=== PATIENT | male | born 1980 | race Caucasian/White ===

== ENCOUNTER 2016-12-08 23:47 | Emergency (ER) | payer MEDICAID ==
[2016-12-09 00:13] LABS: HEMATOCRIT 43.9 % (42.0-52.0); HEMOGLOBIN 14.9 gm/dl (14.0-18.0); MEAN CELL VOLUME 92.4 fl (81-97); MEAN CORPUSCULAR HEMOGLOBIN 31.4 pg (27-33); MEAN CORPUSCULAR HGB CONC 33.9 g/dl (32-36); MEAN PLATELET VOLUME 9.6 fl (7.4-10.4); PLATELET COUNT 349 K/uL (130-400); RED BLOOD COUNT 4.75 M/uL (4.40-5.70); RED CELL DISTRIBUTION WIDTH 12.9 % (11.5-14.5)
[2016-12-09] MEDS ORDERED: 0.9 % SODIUM CHLORIDE 1,000 ML BAG IV ONE (00:29)
[2016-12-09] MEDS ORDERED: HYDROMORPHONE HCL 1 MG/ML CPJ IVP ONE (00:38)
[2016-12-09] MEDS ORDERED: ONDANSETRON HCL IV 4 MG/2 ML VIAL IVP ONE (00:38)
[2016-12-09] MEDS ORDERED: Diph,Pert(Acell),Tet Vac 0.5 ML SYR IM ONE (01:45)
[2016-12-09] MEDS ORDERED: HYDROCODONE/APAP 10/325 TABLET PO ONE (02:14)
[2016-12-09] MEDS ORDERED: CEPHALEXIN 500 MG CAPSULE PO STA (02:14)
--- NOTE | 2016-12-09 02:23 | Emergency Department Record ---
History of Present Illness - General Chief Complaint: Laceration(s) Stated Complaint: LACERATION Time Seen by Provider: 12/08/16 23:52 Source: Patient Mode of Arrival: Ambulatory Limitations: No limitations - History of Present Illness Initial Commments: pt came in bleeding profusely after putting arm through glass door when letting dog out.. pt states he has pain in arm and cant feel 5th finger Onset/Timin -: Minutes(s) Extremity Location: Right: Forearm Place: Home Context: Other Associated Symptoms: Pain, Suspect foreign body present - [place] Coma Scale Eye Response: (4) Open spontaneously Motor Response: (6) Obeys commands Verbal Response: (5) Oriented [place] Total: 15 - Related Data Patient Tetanus UTD (within 5 yrs): No Previous Rx's Medication Instructions Recorded Hydrocodone/Acetaminophen [[place] 1 each PO QID #10 tablet 12/09/16 7.5-325 Tablet] Allergies Allergy/AdvReac Type Severity Reaction Status Date / Time ibuprofen [From Motrin] AdvReac Intermediate VOMITING Verified 12/08/16 23:53 Travel Screening - Travel/Exposure Within Last 30 Days Have you traveled within the last 30 days?: No - Travel Symptoms Symptom Screening: None Review of Systems Reviewed: No additional complaints except as noted below Constitutional: Reports: As per HPI. Denies: Chills, Fever, Malaise, Night sweats, Weakness, Weight change Eyes: Reports: As per HPI. Denies: Eye discharge, Eye pain, Photophobia, Vision change ENT: Reports: As per HPI. Denies: Congestion, Dental pain, Ear pain, Epistaxis , Hearing loss, Throat pain Respiratory: Reports: As per HPI. Denies: Cough, Dyspnea, Hemoptysis, Stridor, Wheezes Cardiovascular: Reports: As per HPI. Denies: Arrhythmia, Chest pain, Dyspnea on exertion, Edema, Murmurs, Orthopnea, Palpitations, Paroxysmal nocturnal dyspnea, Rheumatic Fever, Syncope Endocrine: Reports: As per HPI. Denies: Fatigue, Heat or cold intolerance, Polydipsia, Polyuria Gastrointestinal: Reports: As per HPI. Denies: Abdominal pain, Constipation, Diarrhea, Hematemesis, Hematochezia, Melena, Nausea, Vomiting Genitourinary: Reports: As per HPI. Denies: Dysuria, Frequency, Hematuria, Incontinence, Retention, Testicular pain, Testicular mass, Urgency Musculoskeletal: Reports: As per HPI. Denies: Arthralgia, Back pain, Gout, Joint swelling, Myalgia, Neck pain Skin: Reports: As per HPI. Denies: Bruising, Change in color, Change in hair/ nails, Lesions, Pruritus, Rash Neurological: Reports: As per HPI. Denies: Abnormal gait, Confusion, Headache, Numbness, Paresthesias, Seizure, Tingling, Tremors, Vertigo, Weakness Psychiatric: Reports: As per HPI. Denies: Anxiety, Auditory hallucinations, Depression, Homicidal thoughts, Suicidal thoughts, Visual hallucinations Hematological/Lymphatic: Reports: As per HPI. Denies: Anemia, Blood Clots, Easy bleeding, Easy bruising, Swollen glands Past Medical History - SOCIAL HISTORY Smoking Status: Current every day smoker - RESPIRATORY Hx Respiratory Disorders: No - CARDIOVASCULAR Hx Cardio Disorders: Yes Hx Hypertension: Yes - NEURO Hx Neuro Disorders: No - GI Hx GI Disorders: Yes Hx Reflux: Yes - Hx Genitourinary Disorders: No - ENDOCRINE Hx Endocrine Disorders: No - MUSCULOSKELETAL Hx Musculoskeletal Disorders: No - PSYCH Hx Psych Problems: No - HEMATOLOGY/ONCOLOGY Hx Hematology/Oncology Disorders: No Family Medical History Any Significant Family History?: Yes Hx Depression: Mother Hx HTN: Mother, Grandparents Physical Exam - General General Appearance: Alert, Oriented x3, Cooperative, Moderate distress - Head Head exam: Normal inspection - Eye Eye exam: Normal appearance, PERRL, EOMI Pupils: Normal accommodation - ENT ENT exam: Normal exam, Mucous membranes moist, Normal external ear exam, Normal orophraynx Ear exam: Normal external inspection. negative: External canal tenderness Nasal Exam: Normal inspection. negative: Discharge, Sinus tenderness Mouth exam: Normal external inspection, Tongue normal Teeth exam: Normal inspection. negative: Dental caries Throat exam: Normal inspection. negative: Tonsillar erythema, Tonsillar exudate - Neck Neck exam: Normal inspection, Full ROM. negative: Tenderness - Respiratory Respiratory exam: Normal lung sounds bilaterally. negative: Respiratory distress - Cardiovascular Cardiovascular Exam: Regular rate, Normal rhythm, Normal heart sounds - GI/Abdominal GI/Abdominal exam: Soft, Normal bowel sounds. negative: Tenderness - Rectal Rectal exam: Deferred - exam: Deferred - Extremities Extremities exam: Full ROM, Normal capillary refill, Tenderness, Other (pulses present. good cap refill, decreased sensation 5th finger) Image of Full Body: 1 - 1.5 cm lac - Back Back exam: Reports: Normal inspection, Full ROM. Denies: Muscle spasm, Rash noted, Tenderness - Neurological Neurological exam: Alert, CN II-XII intact, Normal gait, Oriented X3 - Psychiatric Psychiatric exam: Normal affect, Normal mood - Skin Skin exam: Dry, Intact, Normal color, Warm Course Vital Signs 12/08/16 23:54 Temperature 98.2 F Pulse Rate 102 H Respiratory 20 Rate Blood Pressure 132/103 Pulse Ox 96 - Reevaluation(s) Reevaluation #1: 12/09/16 02:22 it took tourniquet w bp cuff twice and pressure and tle to get bleeding to stop. xray shows glass. info sent to dr todd Reevaluation #2: 12/09/16 02:24 wound cleansed and anesth w lido, probed, unable to find fb Medical Decision Making - Lab Data Result diagrams: 12/09/16 00:02 Lab Results 12/09/16 Range/Units 00:02 WBC 8.0 (4.2-12.2) K/uL RBC 4.75 (4.40-5.70) M/uL Hgb 14.9 (14.0-18.0) gm/dl Hct 43.9 (42.0-52.0) % MCV 92.4 (81-97) fl MCH 31.4 (27-33) pg MCHC 33.9 (32-36) g/dl RDW 12.9 (11.5-14.5) % Plt Count 349 (130-400) K/uL MPV 9.6 (7.4-10.4) fl Neutrophils % 40.0 L (47-80) % Band Neutrophils % 0.0 (0-5) % Eosinophils % Not Reportable Basophils % Not Reportable Lymphocytes 45.0 (16-45) % Monocytes 13.0 H (0-9) % Basophils 0.0 (0-6) % Eosinophil Count 2.0 (0-6) % Disposition Disposition: Discharge Clinical Impression: Foreign body (FB) in soft tissue Disposition: Home, Self-Care Condition: (1) Good Instructions: Laceration (ED), Soft Tissue Foreign Body (ED) Additional Instructions: follow up today w dr todd without fail. return sooner if worse Prescriptions: Hydrocodone/Acetaminophen [[place] 7.5-325 Tablet] 1 each PO QID #10 tablet Forms: Patient Portal Access
--- NOTE | 2016-12-09 02:30 | Emergency Department Record ---
History of Present Illness - General Chief Complaint: Laceration(s) Stated Complaint: LACERATION Time Seen by Provider: 12/08/16 23:52 Source: Patient Mode of Arrival: Ambulatory Limitations: No limitations - History of Present Illness Onset/Timin -: Minutes(s) Extremity Location: Right: Forearm Place: Home Context: Other Associated Symptoms: Pain, Suspect foreign body present - [place] Coma Scale Eye Response: (4) Open spontaneously Motor Response: (6) Obeys commands Verbal Response: (5) Oriented [place] Total: 15 - Related Data Patient Tetanus UTD (within 5 yrs): No Previous Rx's Medication Instructions Recorded Hydrocodone/Acetaminophen [[place] 1 each PO QID #10 tablet 12/09/16 7.5-325 Tablet] Allergies Allergy/AdvReac Type Severity Reaction Status Date / Time ibuprofen [From Motrin] AdvReac Intermediate VOMITING Verified 12/08/16 23:53 Travel Screening - Travel/Exposure Within Last 30 Days Have you traveled within the last 30 days?: No - Travel Symptoms Symptom Screening: None Review of Systems Constitutional: Reports: As per HPI. Denies: Chills, Fever, Malaise, Night sweats, Weakness, Weight change Eyes: Reports: As per HPI. Denies: Eye discharge, Eye pain, Photophobia, Vision change ENT: Reports: As per HPI. Denies: Congestion, Dental pain, Ear pain, Epistaxis , Hearing loss, Throat pain Respiratory: Reports: As per HPI. Denies: Cough, Dyspnea, Hemoptysis, Stridor, Wheezes Cardiovascular: Reports: As per HPI. Denies: Arrhythmia, Chest pain, Dyspnea on exertion, Edema, Murmurs, Orthopnea, Palpitations, Paroxysmal nocturnal dyspnea, Rheumatic Fever, Syncope Endocrine: Reports: As per HPI. Denies: Fatigue, Heat or cold intolerance, Polydipsia, Polyuria Gastrointestinal: Reports: As per HPI. Denies: Abdominal pain, Constipation, Diarrhea, Hematemesis, Hematochezia, Melena, Nausea, Vomiting Genitourinary: Reports: As per HPI. Denies: Dysuria, Frequency, Hematuria, Incontinence, Retention, Testicular pain, Testicular mass, Urgency Musculoskeletal: Reports: As per HPI. Denies: Arthralgia, Back pain, Gout, Joint swelling, Myalgia, Neck pain Skin: Reports: As per HPI. Denies: Bruising, Change in color, Change in hair/ nails, Lesions, Pruritus, Rash Neurological: Reports: As per HPI. Denies: Abnormal gait, Confusion, Headache, Numbness, Paresthesias, Seizure, Tingling, Tremors, Vertigo, Weakness Psychiatric: Reports: As per HPI. Denies: Anxiety, Auditory hallucinations, Depression, Homicidal thoughts, Suicidal thoughts, Visual hallucinations Hematological/Lymphatic: Reports: As per HPI. Denies: Anemia, Blood Clots, Easy bleeding, Easy bruising, Swollen glands Past Medical History - SOCIAL HISTORY Smoking Status: Current every day smoker - RESPIRATORY Hx Respiratory Disorders: No - CARDIOVASCULAR Hx Cardio Disorders: Yes Hx Hypertension: Yes - NEURO Hx Neuro Disorders: No - GI Hx GI Disorders: Yes Hx Reflux: Yes - Hx Genitourinary Disorders: No - ENDOCRINE Hx Endocrine Disorders: No - MUSCULOSKELETAL Hx Musculoskeletal Disorders: No - PSYCH Hx Psych Problems: No - HEMATOLOGY/ONCOLOGY Hx Hematology/Oncology Disorders: No Family Medical History Any Significant Family History?: Yes Hx Depression: Mother Hx HTN: Mother, Grandparents Physical Exam - General Limitations: No limitations Course Vital Signs 12/08/16 23:54 Temperature 98.2 F Pulse Rate 102 H Respiratory 20 Rate Blood Pressure 132/103 Pulse Ox 96 Medical Decision Making - Lab Data Result diagrams: 12/09/16 00:02 Lab Results 12/09/16 Range/Units 00:02 WBC 8.0 (4.2-12.2) K/uL RBC 4.75 (4.40-5.70) M/uL Hgb 14.9 (14.0-18.0) gm/dl Hct 43.9 (42.0-52.0) % MCV 92.4 (81-97) fl MCH 31.4 (27-33) pg MCHC 33.9 (32-36) g/dl RDW 12.9 (11.5-14.5) % Plt Count 349 (130-400) K/uL MPV 9.6 (7.4-10.4) fl Neutrophils % 40.0 L (47-80) % Band Neutrophils % 0.0 (0-5) % Eosinophils % Not Reportable Basophils % Not Reportable Lymphocytes 45.0 (16-45) % Monocytes 13.0 H (0-9) % Basophils 0.0 (0-6) % Eosinophil Count 2.0 (0-6) % Disposition Clinical Impression: Foreign body (FB) in soft tissue Disposition: Home, Self-Care Condition: (1) Good Instructions: Laceration (ED), Soft Tissue Foreign Body (ED) Additional Instructions: follow up today w dr cono without fail. return sooner if worse Prescriptions: Hydrocodone/Acetaminophen [[place] 7.5-325 Tablet] 1 each PO QID #10 tablet Referrals: COLT COON M.D. [MEDICAL DOCTOR] - Forms: Patient Portal Access
--- NOTE | 2016-12-09 02:32 | Emergency Department Record ---
History of Present Illness - General Chief Complaint: Laceration(s) Stated Complaint: LACERATION Time Seen by Provider: 12/08/16 23:52 Source: Patient Mode of Arrival: Ambulatory Limitations: No limitations - History of Present Illness Onset/Timin -: Minutes(s) Extremity Location: Right: Forearm Place: Home Context: Other Associated Symptoms: Pain, Suspect foreign body present - [place] Coma Scale Eye Response: (4) Open spontaneously Motor Response: (6) Obeys commands Verbal Response: (5) Oriented [place] Total: 15 - Related Data Patient Tetanus UTD (within 5 yrs): No Previous Rx's Medication Instructions Recorded Cephalexin [Keflex] 500 mg PO QID #30 cap 12/09/16 Hydrocodone/Acetaminophen [[place] 1 each PO QID #10 tablet 12/09/16 7.5-325 Tablet] Allergies Allergy/AdvReac Type Severity Reaction Status Date / Time ibuprofen [From Motrin] AdvReac Intermediate VOMITING Verified 12/08/16 23:53 Travel Screening - Travel/Exposure Within Last 30 Days Have you traveled within the last 30 days?: No - Travel Symptoms Symptom Screening: None Review of Systems Constitutional: Reports: As per HPI. Denies: Chills, Fever, Malaise, Night sweats, Weakness, Weight change Eyes: Reports: As per HPI. Denies: Eye discharge, Eye pain, Photophobia, Vision change ENT: Reports: As per HPI. Denies: Congestion, Dental pain, Ear pain, Epistaxis , Hearing loss, Throat pain Respiratory: Reports: As per HPI. Denies: Cough, Dyspnea, Hemoptysis, Stridor, Wheezes Cardiovascular: Reports: As per HPI. Denies: Arrhythmia, Chest pain, Dyspnea on exertion, Edema, Murmurs, Orthopnea, Palpitations, Paroxysmal nocturnal dyspnea, Rheumatic Fever, Syncope Endocrine: Reports: As per HPI. Denies: Fatigue, Heat or cold intolerance, Polydipsia, Polyuria Gastrointestinal: Reports: As per HPI. Denies: Abdominal pain, Constipation, Diarrhea, Hematemesis, Hematochezia, Melena, Nausea, Vomiting Genitourinary: Reports: As per HPI. Denies: Dysuria, Frequency, Hematuria, Incontinence, Retention, Testicular pain, Testicular mass, Urgency Musculoskeletal: Reports: As per HPI. Denies: Arthralgia, Back pain, Gout, Joint swelling, Myalgia, Neck pain Skin: Reports: As per HPI. Denies: Bruising, Change in color, Change in hair/ nails, Lesions, Pruritus, Rash Neurological: Reports: As per HPI. Denies: Abnormal gait, Confusion, Headache, Numbness, Paresthesias, Seizure, Tingling, Tremors, Vertigo, Weakness Psychiatric: Reports: As per HPI. Denies: Anxiety, Auditory hallucinations, Depression, Homicidal thoughts, Suicidal thoughts, Visual hallucinations Hematological/Lymphatic: Reports: As per HPI. Denies: Anemia, Blood Clots, Easy bleeding, Easy bruising, Swollen glands Past Medical History - SOCIAL HISTORY Smoking Status: Current every day smoker - RESPIRATORY Hx Respiratory Disorders: No - CARDIOVASCULAR Hx Cardio Disorders: Yes Hx Hypertension: Yes - NEURO Hx Neuro Disorders: No - GI Hx GI Disorders: Yes Hx Reflux: Yes - Hx Genitourinary Disorders: No - ENDOCRINE Hx Endocrine Disorders: No - MUSCULOSKELETAL Hx Musculoskeletal Disorders: No - PSYCH Hx Psych Problems: No - HEMATOLOGY/ONCOLOGY Hx Hematology/Oncology Disorders: No Family Medical History Any Significant Family History?: Yes Hx Depression: Mother Hx HTN: Mother, Grandparents Physical Exam - General Limitations: No limitations Course Vital Signs 12/08/16 23:54 Temperature 98.2 F Pulse Rate 102 H Respiratory 20 Rate Blood Pressure 132/103 Pulse Ox 96 Medical Decision Making - Lab Data Result diagrams: 12/09/16 00:02 Lab Results 12/09/16 Range/Units 00:02 WBC 8.0 (4.2-12.2) K/uL RBC 4.75 (4.40-5.70) M/uL Hgb 14.9 (14.0-18.0) gm/dl Hct 43.9 (42.0-52.0) % MCV 92.4 (81-97) fl MCH 31.4 (27-33) pg MCHC 33.9 (32-36) g/dl RDW 12.9 (11.5-14.5) % Plt Count 349 (130-400) K/uL MPV 9.6 (7.4-10.4) fl Neutrophils % 40.0 L (47-80) % Band Neutrophils % 0.0 (0-5) % Eosinophils % Not Reportable Basophils % Not Reportable Lymphocytes 45.0 (16-45) % Monocytes 13.0 H (0-9) % Basophils 0.0 (0-6) % Eosinophil Count 2.0 (0-6) % Disposition Clinical Impression: Foreign body (FB) in soft tissue Disposition: Home, Self-Care Condition: (1) Good Instructions: Laceration (ED), Soft Tissue Foreign Body (ED) Additional Instructions: follow up today w dr coon without fail. return sooner if worse Prescriptions: Cephalexin [Keflex] 500 mg PO QID #30 cap Hydrocodone/Acetaminophen [[place] 7.5-325 Tablet] 1 each PO QID #10 tablet Referrals: COLT COON M.D. [MEDICAL DOCTOR] - Forms: Patient Portal Access
--- NOTE | 2016-12-09 14:48 | RADIOLOGY REPORT ---
EXAM: RIGHT FOREARM, AP AND LATERAL VIEWS HISTORY: LACERATION TO MID FOREARM SECONDARY TO SHATTERED GLASS. TECHNIQUE: AP and lateral views of the right forearm were obtained. Comparison: Same day three views of the right hand. Encounter: Initial. FINDINGS: There is normal bone mineralization. No fracture, dislocation, or destructive bone lesion is seen. The articular relations are maintained. No radiopaque foreign body is identified though a bandage overlying the level of laceration mildly limits evaluation. IMPRESSION: NO ACUTE FRACTURE, DISLOCATION, NOR RADIOPAQUE FOREIGN BODY VISUALIZED. JOB NUMBER: [id number] MTDD
--- NOTE | 2016-12-09 14:53 | RADIOLOGY REPORT ---
EXAM: RIGHT HAND, THREE VIEWS HISTORY: PAIN POST TRAUMA. LACERATION TO MID FOREARM. TECHNIQUE: Three views of the right hand were obtained. Comparison: Same day radiographic examination of the right forearm. Encounter: Initial. FINDINGS: There is overall normal bone mineralization. There is a small focus of sclerosis within the base of the fourth distal phalanx measuring 4 mm in maximum diameter. This is nonspecific, but likely a bone island. The articular relations are grossly maintained. Mild dorsal soft tissue swelling is noted at the medial MCP joint level. No radiopaque foreign body identified. IMPRESSION: NO FRACTURE, DISLOCATION, NOR RADIOPAQUE FOREIGN BODY IDENTIFIED. DORSAL SOFT TISSUE SWELLING AT THE MEDIAL MCP JOINT LEVELS. JOB NUMBER: [id number] MTDD
== END 2016-12-09 02:40 | disposition home or self-care (01) ==
LOC: ER 23:47
DX: S51.811A Laceration without foreign body of right forearm, initial encounter (principal); W25.XXXA Contact with sharp glass, initial encounter; W45.8XXA Other foreign body or object entering through skin, initial encounter; W22.8XXA Striking against or struck by other objects, initial encounter; Y93.K9 Activity, other involving animal care; Y92.009 Unspecified place in unspecified non-institutional (private) residence as the place of occurrence of the external cause
CPT/HCPCS: 99284 ×2; 96374; 96372; 96375; 85027; 73090; 73130; J2405; J3490; J1170; 90715; J7030

== ENCOUNTER 2016-12-10 14:19 | Emergency (ER) | payer MEDICAID ==
--- NOTE | 2016-12-10 14:53 | Emergency Department Record ---
History of Present Illness - General Chief Complaint: Wound, check Stated Complaint: NEED TO HAVE ARM LOOKED AT,RED AND PAINFUL Time Seen by Provider: 12/10/16 14:45 Source: Patient - History of Present Illness Initial Comments: patient concerned about the bruising in his arm and he has an appointment with Dr. Eagle tomorrow at 10 am to remove the glass in his arm. Patient has good pulses in his arm and ROM of fingers good, good sensation of the hand and he says the tips of finger numb Onset/Timin -: Days(s) Initial Visit For: Laceration Returns Today for: Wound recheck Symptoms Since Prior Visit: Worsening pain Associated Symptoms: None - Related Data Previous Rx's Medication Instructions Recorded Cephalexin [Keflex] 500 mg PO QID #30 cap 12/09/16 Hydrocodone/Acetaminophen [[place] 1 each PO QID #10 tablet 12/09/16 7.5-325 Tablet] Allergies Allergy/AdvReac Type Severity Reaction Status Date / Time ibuprofen [From Motrin] AdvReac Intermediate VOMITING Verified 12/10/16 14:26 Travel Screening - Travel/Exposure Within Last 30 Days Have you traveled within the last 30 days?: No - Travel/Exposure Within Last Year Have you traveled outside the [place] in the last year?: No - Additonal Travel Details Have you been exposed to anyone with a communicable illness?: No - Travel Symptoms Symptom Screening: None Review of Systems Reviewed: No additional complaints except as noted below Constitutional: Reports: As per HPI. Denies: Chills, Fever, Malaise, Night sweats, Weakness, Weight change Eyes: Reports: As per HPI. Denies: Eye discharge, Eye pain, Photophobia, Vision change ENT: Reports: As per HPI. Denies: Congestion, Dental pain, Ear pain, Epistaxis , Hearing loss, Throat pain Respiratory: Reports: As per HPI. Denies: Cough, Dyspnea, Hemoptysis, Stridor, Wheezes Cardiovascular: Reports: As per HPI. Denies: Arrhythmia, Chest pain, Dyspnea on exertion, Edema, Murmurs, Orthopnea, Palpitations, Paroxysmal nocturnal dyspnea, Rheumatic Fever, Syncope Endocrine: Reports: As per HPI. Denies: Fatigue, Heat or cold intolerance, Polydipsia, Polyuria Gastrointestinal: Reports: As per HPI. Denies: Abdominal pain, Constipation, Diarrhea, Hematemesis, Hematochezia, Melena, Nausea, Vomiting Genitourinary: Reports: As per HPI. Denies: Dysuria, Frequency, Hematuria, Incontinence, Retention, Testicular pain, Testicular mass, Urgency Musculoskeletal: Reports: As per HPI. Denies: Arthralgia, Back pain, Gout, Joint swelling, Myalgia, Neck pain Skin: Reports: As per HPI, Other (lacerations small 2cm puncture times two and he states glass in the arm and going to a plastic surgeon to remove it). Denies : Bruising, Change in color, Change in hair/nails, Lesions, Pruritus, Rash Neurological: Reports: As per HPI. Denies: Abnormal gait, Confusion, Headache, Numbness, Paresthesias, Seizure, Tingling, Tremors, Vertigo, Weakness Psychiatric: Reports: As per HPI. Denies: Anxiety, Auditory hallucinations, Depression, Homicidal thoughts, Suicidal thoughts, Visual hallucinations Hematological/Lymphatic: Reports: As per HPI. Denies: Anemia, Blood Clots, Easy bleeding, Easy bruising, Swollen glands Past Medical History - SOCIAL HISTORY Smoking Status: Current every day smoker Alcohol Use: Occassional Drug Use: None - RESPIRATORY Hx Respiratory Disorders: No - CARDIOVASCULAR Hx Cardio Disorders: Yes Hx Hypertension: Yes - NEURO Hx Neuro Disorders: No - GI Hx GI Disorders: Yes Hx Reflux: Yes - Hx Genitourinary Disorders: No - ENDOCRINE Hx Endocrine Disorders: No - MUSCULOSKELETAL Hx Musculoskeletal Disorders: No - PSYCH Hx Psych Problems: No - HEMATOLOGY/ONCOLOGY Hx Hematology/Oncology Disorders: No Family Medical History Any Significant Family History?: Yes Hx Depression: Mother Hx HTN: Mother, Grandparents Physical Exam - General General Appearance: Alert, Oriented x3, Cooperative, No acute distress - Head Head exam: Normal inspection - Eye Eye exam: Normal appearance, PERRL Pupils: Normal accommodation - ENT ENT exam: Normal exam, Mucous membranes moist, Normal external ear exam, Normal orophraynx, TM's normal bilaterally Ear exam: Normal external inspection. negative: External canal tenderness Nasal Exam: Normal inspection. negative: Discharge, Sinus tenderness Mouth exam: Normal external inspection, Tongue normal Teeth exam: Normal inspection. negative: Dental caries Throat exam: Normal inspection. negative: Tonsillar erythema, Tonsillar exudate - Neck Neck exam: Normal inspection, Full ROM. negative: Tenderness - Respiratory Respiratory exam: Normal lung sounds bilaterally. negative: Respiratory distress - Cardiovascular Cardiovascular Exam: Regular rate, Normal rhythm, Normal heart sounds - GI/Abdominal GI/Abdominal exam: Soft, Normal bowel sounds. negative: Tenderness - Rectal Rectal exam: Deferred - exam: Deferred - Extremities Extremities exam: Normal inspection, Full ROM, Normal capillary refill. negative: Tenderness - Back Back exam: Reports: Normal inspection, Full ROM. Denies: Muscle spasm, Rash noted, Tenderness - Neurological Neurological exam: Alert, Normal gait, Oriented X3, Reflexes normal - Psychiatric Psychiatric exam: Normal affect, Normal mood - Skin Skin exam: Dry, Warm, Other (ecchymosis and two 2 cm punture type lacerations and gravity is causing eccchymosis down the arm) Course Vital Signs 12/10/16 14:27 Temperature 98 F Pulse Rate 98 H Respiratory 20 Rate Blood Pressure 161/93 Pulse Ox 97 Disposition Clinical Impression: Foreign body (FB) in soft tissue, Ecchymosis of forearm Disposition: Home, Self-Care Condition: (1) Good Instructions: Laceration (ED) Additional Instructions: follow up with Dr. Eagle as scheduled tomorrow at 10:00 am Forms: Patient Portal Access Time of Disposition: 14:54
== END 2016-12-10 15:00 | disposition home or self-care (01) ==
LOC: ER 14:19
DX: G89.11 Acute pain due to trauma (principal); M79.631 Pain in right forearm; S51.811A Laceration without foreign body of right forearm, initial encounter; S50.11XA Contusion of right forearm, initial encounter; R20.0 Anesthesia of skin; W25.XXXA Contact with sharp glass, initial encounter; W45.8XXA Other foreign body or object entering through skin, initial encounter; W22.8XXA Striking against or struck by other objects, initial encounter; Y93.K9 Activity, other involving animal care; Y92.009 Unspecified place in unspecified non-institutional (private) residence as the place of occurrence of the external cause
CPT/HCPCS: 99282

== ENCOUNTER 2017-07-30 03:27 | Emergency (ER) | payer MEDICAID ==
[2017-07-30] MEDS: ASPIRIN 81 MG CHEWABLE TABLET PO ONE (03:53)
[2017-07-30 04:17] LABS: CREATINE PHOSPHOKINASE 729 U/L (39-308)
[2017-07-30 04:19] LABS: CKMB 5.5 ng/mL (<6.73)
--- NOTE | 2017-07-30 04:24 | Emergency Department Record ---
History of Present Illness - General Chief Complaint: Chest Pain Stated Complaint: CHEST PAIN Time Seen by Provider: 07/30/17 03:28 Source: Patient Mode of Arrival: Wheelchair Limitations: No limitations - History of Present Illness Initial Comments: pt has a variety of complaints. he has had 4 falls in the last month hitting his head w headaches. he is an alcoholic drinking a fifth a day. he has had cp and transient numbness of his l side. he has lost 30 lbs since gi. Onset/Timin -: Days(s) Onset: During rest Pain Location: Left chest Severity: Mild Severity scale (1-10): 4 Quality: Aching Consistency: Now resolved Improves With: Nothing Worsens With: Nothing Anginal Symptoms: Nausea, Vomiting - Related Data Allergies Allergy/AdvReac Type Severity Reaction Status Date / Time ibuprofen [From Motrin] AdvReac Intermediate VOMITING Verified 12/10/16 14:26 Travel Screening - Travel/Exposure Within Last 30 Days Have you traveled within the last 30 days?: No - Travel/Exposure Within Last Year Have you traveled outside the [place] in the last year?: No - Additonal Travel Details Have you been exposed to anyone with a communicable illness?: No - Travel Symptoms Symptom Screening: None Review of Systems Reviewed: No additional complaints except as noted below Constitutional: Reports: As per HPI. Denies: Chills, Fever, Malaise, Night sweats, Weakness, Weight change Eyes: Reports: As per HPI. Denies: Eye discharge, Eye pain, Photophobia, Vision change ENT: Reports: As per HPI. Denies: Congestion, Dental pain, Ear pain, Epistaxis , Hearing loss, Throat pain Respiratory: Reports: As per HPI, Cough. Denies: Dyspnea, Hemoptysis, Stridor, Wheezes Cardiovascular: Reports: As per HPI, Chest pain. Denies: Arrhythmia, Dyspnea on exertion, Edema, Murmurs, Orthopnea, Palpitations, Paroxysmal nocturnal dyspnea, Rheumatic Fever, Syncope Endocrine: Reports: As per HPI. Denies: Fatigue, Heat or cold intolerance, Polydipsia, Polyuria Gastrointestinal: Reports: As per HPI, Nausea. Denies: Abdominal pain, Constipation, Diarrhea, Hematemesis, Hematochezia, Melena, Vomiting Genitourinary: Reports: As per HPI. Denies: Dysuria, Frequency, Hematuria, Incontinence, Retention, Testicular pain, Testicular mass, Urgency Musculoskeletal: Reports: As per HPI. Denies: Arthralgia, Back pain, Gout, Joint swelling, Myalgia, Neck pain Skin: Reports: As per HPI. Denies: Bruising, Change in color, Change in hair/ nails, Lesions, Pruritus, Rash Neurological: Reports: As per HPI, Confusion, Headache. Denies: Abnormal gait, Numbness, Paresthesias, Seizure, Tingling, Tremors, Vertigo, Weakness Psychiatric: Reports: As per HPI, Visual hallucinations. Denies: Anxiety, Auditory hallucinations, Depression, Homicidal thoughts, Suicidal thoughts Hematological/Lymphatic: Reports: As per HPI. Denies: Anemia, Blood Clots, Easy bleeding, Easy bruising, Swollen glands Past Medical History - SOCIAL HISTORY Smoking Status: Current every day smoker Alcohol Use: Heavy Alcohol Use Comment: 1 pint-fifth/day vodka Drug Use: None - RESPIRATORY Hx Respiratory Disorders: No - CARDIOVASCULAR Hx Cardio Disorders: Yes Hx Hypertension: Yes - NEURO Hx Neuro Disorders: No - GI Hx GI Disorders: Yes Hx Reflux: Yes - Hx Genitourinary Disorders: No - ENDOCRINE Hx Endocrine Disorders: No - MUSCULOSKELETAL Hx Musculoskeletal Disorders: No - PSYCH Hx Psych Problems: No - HEMATOLOGY/ONCOLOGY Hx Hematology/Oncology Disorders: No Family Medical History Any Significant Family History?: No Hx Depression: Mother Hx HTN: Mother, Grandparents Physical Exam - General General Appearance: Alert, Oriented x3, Cooperative, Mild distress - Head Head exam: Normal inspection - Eye Eye exam: Normal appearance, PERRL, EOMI, Nystagmus Pupils: Normal accommodation - ENT ENT exam: Normal exam, Mucous membranes moist, Normal external ear exam, Normal orophraynx, TM's normal bilaterally Ear exam: Normal external inspection. negative: External canal tenderness Nasal Exam: Normal inspection. negative: Discharge, Sinus tenderness Mouth exam: Normal external inspection, Tongue normal Teeth exam: Normal inspection. negative: Dental caries Throat exam: Normal inspection. negative: Tonsillar erythema, Tonsillar exudate - Neck Neck exam: Normal inspection, Full ROM. negative: Tenderness - Respiratory Respiratory exam: Normal lung sounds bilaterally. negative: Respiratory distress - Cardiovascular Cardiovascular Exam: Regular rate, Normal rhythm, Normal heart sounds - GI/Abdominal GI/Abdominal exam: Soft, Normal bowel sounds. negative: Tenderness - Rectal Rectal exam: Deferred - exam: Deferred - Extremities Extremities exam: Normal inspection, Full ROM, Normal capillary refill. negative: Tenderness - Back Back exam: Reports: Normal inspection, Full ROM. Denies: Muscle spasm, Rash noted, Tenderness - Neurological Neurological exam: Alert, CN II-XII intact, Normal gait, Oriented X3, Other ( tremors) - Psychiatric Psychiatric exam: Normal affect, Normal mood - Skin Skin exam: Dry, Intact, Normal color, Warm Course Vital Signs 07/30/17 03:28 Temperature 98.3 F Pulse Rate 121 H Respiratory 20 Rate Blood Pressure 183/122 Pulse Ox 95 - Reevaluation(s) Reevaluation #1: 07/30/17 04:50 pt feels better Medical Decision Making - Lab Data Result diagrams: 07/30/17 04:25 07/30/17 04:30 Disposition Disposition: Discharge Clinical Impression: Alcohol abuse Head injury Qualifiers: Encounter type: initial encounter Qualified Code(s): S09.90XA - Unspecified injury of head, initial encounter Chest pain Qualifiers: Chest pain type: unspecified Qualified Code(s): R07.9 - Chest pain, unspecified Disposition: Home, Self-Care Condition: (1) Good Instructions: Head Injury (ED), Abuse of Alcohol (ED) Additional Instructions: follow up with family doctor. return sooner if worse. push fluids Forms: Patient Portal Access, Return to Work/School Quality - Quality Measures Quality Measures: N/A - Blood Pressure Screening Does Patient Have Any of the Following: No Blood Pressure Classification: Hypertensive Reading Systolic Measurement: 183 Diastolic Measurement: 122 Screening for High Blood Pressure: < First Hypertensive BP, F/U Documented > [ [id number]] First Hypertensive Follow-up Interventions: Follow-up with rescreen GT 1 day and LT 4 weeks.
[2017-07-30 04:28] LABS: BASO % 1.8 % (0-6); EOS % 2.5 % (0-6); GRAN % 39.2 % (47-80); HEMATOCRIT 41.9 % (42.0-52.0); HEMOGLOBIN 14.9 gm/dl (14.0-18.0); LYMPH % 46.2 % (16-45); MEAN CELL VOLUME 92.5 fl (81-97); MEAN CORPUSCULAR HEMOGLOBIN 32.9 pg (27-33); MEAN CORPUSCULAR HGB CONC 35.6 g/dl (32-36); MEAN PLATELET VOLUME 9.7 fl (7.4-10.4); MONO % 10.3 % (0-9); PLATELET COUNT 127 K/uL (130-400); RED BLOOD COUNT 4.53 M/uL (4.40-5.70); RED CELL DISTRIBUTION WIDTH 13.1 % (11.5-14.5); WHITE BLOOD COUNT W/O DIFF 4.5 K/uL (4.2-12.2)
[2017-07-30 04:30] LABS: GLUCOSE,RANDOM 96 mg/dL (74-109)
[2017-07-30 04:31] LABS: ALB/GLOB RATIO 1.5 (1.1-1.8); ALBUMIN 5.3 g/dL (4.0-5.0); ALKALINE PHOSPHATASE 120 U/L (40-129); ALT/SGPT 87 U/L (<41); AST/SGOT 253 U/L (10.0-50.0); BLOOD UREA NITROGEN 7 mg/dL (6-20); CREATININE 0.8 mg/dL (0.7-1.2); EST GLOMERULAR FILTRATION RATE > 60 mL/min; TOTAL PROTEIN 8.9 g/dL (6.6-8.7)
[2017-07-30] MEDS: MVI, ADULT NO.4 WITH VIT K 10 ML, THIAMINE HCL IV 100 MG in 0.9 % SODIUM CHLORIDE 1000M... IV SCH ×3 (04:50)
--- NOTE | 2017-07-30 14:48 | RADIOLOGY REPORT ---
EXAM: CHEST, TWO VIEWS HISTORY: CHEST PAIN FOR SEVERAL WEEKS, GOT WORSE TONIGHT, RADIATING TO LEFT ARM AND LEFT SIDE OF NECK. TECHNIQUE: PA and lateral views of the chest were obtained. Comparison: None. FINDINGS: The heart size is normal. No definite acute infiltrate seen. No pleural effusion or pneumothorax evident. IMPRESSION: THE CHEST APPEARS NEGATIVE. JOB NUMBER: [id number] MTDD
--- NOTE | 2017-07-30 15:08 | CT SCAN REPORT ---
EXAM: HEAD CT HISTORY: PATIENT FELL AND HIT HIS HEAD ON A ROCK A MONTH AGO, HE HAS FALLEN SEVERAL TIMES SINCE WITH HEADACHE TONIGHT. TECHNIQUE: Axial CT scan of the head was performed without IV contrast. A preliminary report was provided by [email or web address]. Comparison: No prior head CT. Encounter: Initial. FINDINGS: No definite acute intracranial hemorrhage identified. No focal mass effect or midline shift apparent. No definite acute infarct or intracranial mass lesion is seen. There is prominent membrane thickening in the right maxillary antrum and a mild amount in the ethmoids. Deformity of the nasal bone probably representing an old fracture although correlation with any current tenderness to suggest a more recent nasal bone fracture is suggested. Note is also made of opacification of some left mastoid air cells of uncertain age. IMPRESSION: 1. NO DEFINITE ACUTE INTRACRANIAL HEMORRHAGE OR FOCAL MASS EFFECT EVIDENT. 2. 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 3. MODERATE MEMBRANE THICKENING IN THE RIGHT MAXILLARY SINUS AND MILD MEMBRANE THICKENING IN THE ETHMOIDS. THERE IS OPACIFICATION OF SOME LEFT MASTOID AIR CELLS WELL OF UNCERTAIN AGE. JOB NUMBER: [id number] MTDD
== END 2017-07-30 05:20 | disposition home or self-care (01) ==
LOC: ER 03:27
DX: S09.90XA Unspecified injury of head, initial encounter (principal); R07.9 Chest pain, unspecified; R11.2 Nausea with vomiting, unspecified; R51 Headache; R20.0 Anesthesia of skin; R63.4 Abnormal weight loss; F10.20 Alcohol dependence, uncomplicated; F17.210 Nicotine dependence, cigarettes, uncomplicated; I10 Essential (primary) hypertension; Z91.81 History of falling; W19.XXXA Unspecified fall, initial encounter
CPT/HCPCS: 70450; 71046; 80053; 82550; 82553; 84484; 85025; 93005; 93010; 96374; 99284; J3411; J7030